=== PATIENT | male | born 1940 | race Caucasian/White ===

== ENCOUNTER 2021-03-25 08:05 | Outpatient (CLI) | payer MEDICARE, OTHER | END 2021-03-25 08:06 | disposition home or self-care (01) | LOC: CSHWCC 08:05 | PROVIDERS: ATTEND Nurse Practitioner Family | DX: L89.301 Pressure ulcer of unspecified buttock, stage 1 (principal) ==

== ENCOUNTER 2021-08-01 11:11 | Inpatient (IN) | payer MEDICARE, OTHER ==
[2021-08-01 11:54] LABS: Bilirubin Neg (Negative); Blood, Urine Negative (Negative); Clarity Slightly Cloudy (Clear); Glucose, Urine (Dipstick) Normal (Negative); Ketone, Urine Negative (Negative); Leukocyte 500 (Negative); Nitrite Negative (Negative); Protein, Urine (Dipstick) Negative (Neg-Trace); Specific Gravity, Urine 1.005 (1.002-1.036); Urobilinogen Normal mg/dL (Less than 2)
[2021-08-01] MEDS ORDERED: Furosemide 40 MG/4 ML VIAL ONE (12:02)
[2021-08-01] MEDS ORDERED: Nitroglycerin 2% Ointment 1 INCH/1 GM Packet ONE (12:02)
[2021-08-01 12:07] LABS: #Monocytes 0.7 10x3/uL (0.0-1.1); %Basophils 0.5 % (0.0-2.0); %Eosinophils 0.5 % (0.0-6.0); %Lymphocytes 14.3 % (18.0-47.0); %Monocytes 8.8 % (0.0-10.0); %Neutrophils 75.5 % (40.0-75.0); Hemoglobin 7.3 g/dL (13.5-17.5); Mean Corpuscular HGB CONC 31.1 g/dL (32.0-36.0); Mean Corpuscular Hemoglobin 30.9 pg (27.0-33.0); Mean Corpuscular Volume 99.6 fl (81.2-95.1); Mean Platelet Volume 10.6 fl (7.4-10.4); Platelet Count 278 10x3/uL (150-450); RBC Distribution Width 14.4 % (11.5-14.5); Red Blood Cell (RBC) Count 2.36 10x6/uL (4.32-5.72); White Blood Cell (WBC) Count 7.9 10x3/uL (3.5-10.5)
[2021-08-01 12:20] LABS: ALT (SGPT) 10 U/L (8-55); AST (SGOT) 13 U/L (5-34); Albumin 3.5 g/dL (3.4-4.8); Alkaline Phosphatase 55 U/L (40-110); Anion Gap 16 mmol/L (10-20); BUN (Urea Nitrogen) 41 mg/dL (8.4-25.7); Bilirubin, Total 0.4 mg/dL (0.2-1.2); CK (CPK) 106 U/L (30-200); Calc. Creatinine Clearance 0 mL/min (70-130); Calcium 9.2 mg/dL (7.8-10.44); Carbon Dioxide 33 mmol/L (23-31); Chloride 99 mmol/L (98-107); Globulin 2.7 g/dL (2.4-3.5); Glucose 115 mg/dL (83-110); Lipase 23 U/L (8-78); Potassium 3.9 mmol/L (3.5-5.1); Protein, Total 6.2 g/dL (5.8-8.1); Sodium 144 mmol/L (136-145)
[2021-08-01 12:31] LABS: RBC/HPF None Seen HPF (0-3)
[2021-08-01 12:33] LABS: Bacteria/HPF 2+ HPF (None Seen)
[2021-08-01] MEDS ORDERED: Acetaminophen 325 MG TAB PO PRN (14:44)
[2021-08-01] MEDS ORDERED: Dextrose 5% in Water 1,000 ML IV PRN (14:53)
[2021-08-01] MEDS ORDERED: Dextrose 50% Abboject 50 ML SYRINGE SLOW IVP PRN (14:53)
[2021-08-01] MEDS ORDERED: HumaLOG 300 UNITS/3 ML VIAL SC PRN (14:53)
[2021-08-01 15:56] VITALS: BMI 43.8
[2021-08-01] MEDS ORDERED: Furosemide 40 MG/4 ML VIAL SLOW IVP SCH (17:00)
[2021-08-01] MEDS ORDERED: Apixaban 5 MG TAB PO SCH (21:00)
[2021-08-02 04:08] LABS: #Eosinphils 0.1 10x3/uL (0.0-0.5); #Monocytes 0.7 10x3/uL (0.0-1.1); #Neutrophils 5.3 10x3/uL (1.5-8.4); %Basophils 0.6 % (0.0-2.0); %Lymphocytes 15.2 % (18.0-47.0); %Neutrophils 73.8 % (40.0-75.0); Hemoglobin 7.6 g/dL (13.5-17.5); Mean Corpuscular HGB CONC 32.6 g/dL (32.0-36.0); Mean Corpuscular Hemoglobin 32.1 pg (27.0-33.0); Mean Corpuscular Volume 98.3 fl (81.2-95.1); Mean Platelet Volume 10.7 fl (7.4-10.4); Platelet Count 277 10x3/uL (150-450); RBC Distribution Width 14.6 % (11.5-14.5); Red Blood Cell (RBC) Count 2.37 10x6/uL (4.32-5.72); White Blood Cell (WBC) Count 7.2 10x3/uL (3.5-10.5)
[2021-08-02 04:16] LABS: Anion Gap 14 mmol/L (10-20); BUN (Urea Nitrogen) 42 mg/dL (8.4-25.7); Calc. Creatinine Clearance 46 mL/min (70-130); Carbon Dioxide 36 mmol/L (23-31); Chloride 98 mmol/L (98-107); Glucose 140 mg/dL (83-110); Sodium 144 mmol/L (136-145)
[2021-08-02] MEDS: Furosemide 100 MG/10 ML VIAL SLOW IVP SCH (12:36)
[2021-08-02] MEDS: Atenolol 25 MG TAB PO SCH (12:38)
[2021-08-02] MEDS: Apixaban 2.5 MG TAB PO SCH ×2 (12:38→21:18)
[2021-08-02] MEDS: Spironolactone 25 MG TAB PO SCH (12:38)
[2021-08-02] MEDS: Allopurinol 100 MG TAB PO SCH (12:38)
[2021-08-02] MEDS: Donepezil HCl 5 MG TAB PO SCH (12:38)
[2021-08-03 03:55] LABS: Anion Gap 14 mmol/L (10-20); BUN (Urea Nitrogen) 40 mg/dL (8.4-25.7); Calc. Creatinine Clearance 49 mL/min (70-130); Calcium 9.2 mg/dL (7.8-10.44); Carbon Dioxide 35 mmol/L (23-31); Chloride 97 mmol/L (98-107); Glucose 137 mg/dL (83-110); Potassium 4.2 mmol/L (3.5-5.1); Sodium 142 mmol/L (136-145)
[2021-08-03 04:06] LABS: #Eosinphils 0.1 10x3/uL (0.0-0.5); #Monocytes 0.7 10x3/uL (0.0-1.1); #Neutrophils 6.6 10x3/uL (1.5-8.4); %Basophils 0.5 % (0.0-2.0); %Eosinophils 0.9 % (0.0-6.0); %Lymphocytes 14.7 % (18.0-47.0); %Neutrophils 75.6 % (40.0-75.0); Hemoglobin 8.8 g/dL (13.5-17.5); Mean Corpuscular HGB CONC 32.8 g/dL (32.0-36.0); Mean Corpuscular Hemoglobin 31.7 pg (27.0-33.0); Mean Corpuscular Volume 96.4 fl (81.2-95.1); Mean Platelet Volume 10.6 fl (7.4-10.4); Platelet Count 286 10x3/uL (150-450); RBC Distribution Width 14.9 % (11.5-14.5); Red Blood Cell (RBC) Count 2.78 10x6/uL (4.32-5.72); White Blood Cell (WBC) Count 8.7 10x3/uL (3.5-10.5)
[2021-08-03] MEDS: Donepezil HCl 5 MG TAB PO SCH (09:25)
[2021-08-03] MEDS: Allopurinol 100 MG TAB PO SCH (09:25)
[2021-08-03] MEDS: Spironolactone 25 MG TAB PO SCH (09:25)
[2021-08-03] MEDS: Atenolol 25 MG TAB PO SCH (09:25)
[2021-08-03] MEDS: Apixaban 2.5 MG TAB PO SCH ×2 (09:25→20:54)
[2021-08-03] MEDS: Furosemide 100 MG/10 ML VIAL SLOW IVP SCH (11:07)
[2021-08-03] MEDS: SODIUM CHLORIDE IVPB SCH ×4 (11:07→22:46)
[2021-08-03] MEDS: ADMIXTURE FEE IVPB SCH ×4 (11:07→22:46)
[2021-08-03] MEDS: PENICILLIN POTASSIUM IVPB SCH ×4 (11:07→22:46)
[2021-08-04] MEDS: SODIUM CHLORIDE IVPB SCH ×4 (02:41→14:04)
[2021-08-04] MEDS: ADMIXTURE FEE IVPB SCH ×4 (02:41→14:04)
[2021-08-04] MEDS: PENICILLIN POTASSIUM IVPB SCH ×4 (02:41→14:04)
[2021-08-04 03:39] LABS: #Eosinphils 0.1 10x3/uL (0.0-0.5); #Monocytes 0.9 10x3/uL (0.0-1.1); #Neutrophils 6.4 10x3/uL (1.5-8.4); %Basophils 0.5 % (0.0-2.0); %Eosinophils 1.3 % (0.0-6.0); %Neutrophils 72.9 % (40.0-75.0); Hemoglobin 8.6 g/dL (13.5-17.5); Mean Corpuscular HGB CONC 31.7 g/dL (32.0-36.0); Mean Corpuscular Hemoglobin 30.9 pg (27.0-33.0); Mean Corpuscular Volume 97.5 fl (81.2-95.1); Mean Platelet Volume 10.8 fl (7.4-10.4); Platelet Count 263 10x3/uL (150-450); RBC Distribution Width 14.6 % (11.5-14.5); Red Blood Cell (RBC) Count 2.78 10x6/uL (4.32-5.72); White Blood Cell (WBC) Count 8.7 10x3/uL (3.5-10.5)
[2021-08-04 03:56] LABS: Anion Gap 16 mmol/L (10-20); BUN (Urea Nitrogen) 40 mg/dL (8.4-25.7); Calc. Creatinine Clearance 46 mL/min (70-130); Calcium 9.1 mg/dL (7.8-10.44); Carbon Dioxide 34 mmol/L (23-31); Chloride 99 mmol/L (98-107); Glucose 138 mg/dL (83-110); Potassium 4.6 mmol/L (3.5-5.1); Sodium 144 mmol/L (136-145)
[2021-08-04] MEDS ORDERED: Furosemide 40 MG TAB PO SCH (07:30)
[2021-08-04 07:54] VITALS: TEMP 98.1
[2021-08-04] MEDS: Donepezil HCl 5 MG TAB PO SCH (10:03)
[2021-08-04] MEDS: Atenolol 25 MG TAB PO SCH (10:03)
[2021-08-04] MEDS: Spironolactone 25 MG TAB PO SCH (10:04)
[2021-08-04] MEDS: Apixaban 2.5 MG TAB PO SCH (10:04)
[2021-08-04] MEDS: Allopurinol 100 MG TAB PO SCH (10:04)
[2021-08-04 13:07] VITALS: BP 125/63
[2021-08-04] MEDS ORDERED: Tamsulosin HCl 0.4 MG CAP PO SCH (21:00)
== END 2021-08-04 15:48 | disposition home or self-care (01) | DRG 607 ==
LOC: CSHERS 11:11 → CSHTELE 13:32
PROVIDERS: ADMIT Family Medicine; ATTEND Hospitalist
PROC: 30233N1 Transfusion of Nonautologous Red Blood Cells into Peripheral Vein, Percutaneous Approach (ICD-10-PCS; principal; 2021-08-02)
DX: I89.0 Lymphedema, not elsewhere classified (principal); I13.0 Hypertensive heart and chronic kidney disease with heart failure and stage 1 through stage 4 chronic kidney disease, or unspecified chronic kidney disease; Z68.41 Body mass index [BMI] 40.0-44.9, adult; N18.4 Chronic kidney disease, stage 4 (severe); N39.0 Urinary tract infection, site not specified; J96.11 Chronic respiratory failure with hypoxia; I50.32 Chronic diastolic (congestive) heart failure; M10.9 Gout, unspecified; E78.5 Hyperlipidemia, unspecified; E11.22 Type 2 diabetes mellitus with diabetic chronic kidney disease; D63.1 Anemia in chronic kidney disease; I25.10 Atherosclerotic heart disease of native coronary artery without angina pectoris; N40.0 Benign prostatic hyperplasia without lower urinary tract symptoms; I48.0 Paroxysmal atrial fibrillation; E66.9 Obesity, unspecified; E11.65 Type 2 diabetes mellitus with hyperglycemia; G47.33 Obstructive sleep apnea (adult) (pediatric); Z20.822 Contact with and (suspected) exposure to COVID-19; J64 Unspecified pneumoconiosis; Z79.51 Long term (current) use of inhaled steroids; Z88.8 Allergy status to other drugs, medicaments and biological substances; Z79.899 Other long term (current) drug therapy; Z79.84 Long term (current) use of oral hypoglycemic drugs
CPT/HCPCS: 36415; 36416; 36430; 71045; 71250; 80048; 80053; 81003; 81015; 82550; 83690; 83880; 84484; 85025; 86850; 86900; 86901; 87040; 87077; 87086; 93005; 93306; 94660; 94760; 96374; J1940; J2540; P9016; U0003; U0005

== ENCOUNTER 2021-11-03 03:25 | Inpatient (IN) | payer MEDICARE, OTHER ==
[2021-11-03] MEDS ORDERED: Furosemide 40 MG/4 ML VIAL ONE (03:58)
[2021-11-03 04:36] LABS: #Eosinphils 0.1 10x3/uL (0.0-0.5); #Monocytes 0.6 10x3/uL (0.0-1.1); #Neutrophils 6.2 10x3/uL (1.5-8.4); %Basophils 0.3 % (0.0-2.0); %Eosinophils 0.7 % (0.0-6.0); %Lymphocytes 9.5 % (18.0-47.0); %Monocytes 8.3 % (0.0-10.0); %Neutrophils 80.8 % (40.0-75.0); Hemoglobin 7.3 g/dL (13.5-17.5); Mean Corpuscular HGB CONC 30.8 g/dL (32.0-36.0); Mean Corpuscular Hemoglobin 29.6 pg (27.0-33.0); Mean Platelet Volume 10.2 fl (7.4-10.4); Platelet Count 272 10x3/uL (150-450); RBC Distribution Width 15.7 % (11.5-14.5); Red Blood Cell (RBC) Count 2.47 10x6/uL (4.32-5.72); White Blood Cell (WBC) Count 7.6 10x3/uL (3.5-10.5)
[2021-11-03 04:40] LABS: ALT (SGPT) 16 U/L (8-55); AST (SGOT) 16 U/L (5-34); Albumin 3.8 g/dL (3.4-4.8); Alkaline Phosphatase 66 U/L (40-110); Anion Gap 12 mmol/L (10-20); BUN (Urea Nitrogen) 25 mg/dL (8.4-25.7); Bilirubin, Total 0.5 mg/dL (0.2-1.2); Calc. Creatinine Clearance 0 mL/min (70-130); Calcium 9.5 mg/dL (7.8-10.44); Carbon Dioxide 32 mmol/L (23-31); Chloride 99 mmol/L (98-107); Estimated GFR 34; Globulin 2.9 g/dL (2.4-3.5); Glucose 133 mg/dL (83-110); Lipase 20 U/L (8-78); Magnesium 1.7 mg/dL (1.6-2.6); Potassium 3.9 mmol/L (3.5-5.1); Protein, Total 6.7 g/dL (5.8-8.1); Sodium 139 mmol/L (136-145)
[2021-11-03 04:54] LABS: Bilirubin Neg (Negative); Blood, Urine Negative (Negative); Clarity Clear (Clear); Glucose, Urine (Dipstick) Normal (Negative); Ketone, Urine Negative (Negative); Leukocyte 500 (Negative); Nitrite Positive (Negative); Protein, Urine (Dipstick) Negative (Neg-Trace); Urobilinogen Normal mg/dL (Less than 2)
[2021-11-03 05:01] LABS: CKMB 4.2 ng/mL (0-6.6)
[2021-11-03 05:04] LABS: Bacteria/HPF 3+ HPF (None Seen); RBC/HPF None Seen HPF (0-3); Squamous Epithelial 0-3 HPF (0-3)
[2021-11-03 05:40] LABS: SARS-CoV-2 NAA Rapid Test Not Detected (NotDetected)
[2021-11-03] MEDS ORDERED: cefTRIAXone\\ROCEPHIN 1 GM VIAL ONE (06:02)
[2021-11-03] MEDS ORDERED: Furosemide 100 MG/10 ML VIAL SLOW IVP SCH (06:15)
[2021-11-03] MEDS ORDERED: Dextrose 50% Abboject 50 ML SYRINGE SLOW IVP PRN (06:16)
[2021-11-03] MEDS ORDERED: Dextrose 5% in Water 1,000 ML IV PRN (06:16)
[2021-11-03] MEDS ORDERED: methylPREDNISolone Sod Succ 40 MG VIAL IVP SCH (06:30)
[2021-11-03 06:32] LABS: PTT 29.3 sec (22.0-33.0); Prothrombin Time 11.2 sec (9.5-12.1)
[2021-11-03 06:38] LABS: Magnesium 1.8 mg/dL (1.6-2.6)
[2021-11-03 07:59] VITALS: BMI 41.8
[2021-11-03] MEDS: Enoxaparin Sodium 120 MG/0.8 ML SYRINGE SC SCH ×2 (11:15→21:11)
[2021-11-03] MEDS: Aspirin Chewable 81 MG TAB PO SCH (11:15)
[2021-11-03] MEDS: Pantoprazole 40 MG VIAL IVP SCH (11:18)
[2021-11-03] MEDS: Furosemide 100 MG/10 ML VIAL SLOW IVP SCH (14:17)
[2021-11-03] MEDS: methylPREDNISolone Sod Succ 40 MG VIAL IVP SCH (21:11)
[2021-11-04] MEDS: cefTRIAXone\\ROCEPHIN 1 GM in Sodium Chloride 0.9% 100 ML IVPB SCH (04:24)
[2021-11-04 05:30] LABS: #Monocytes 0.1 10x3/uL (0.0-1.1); #Neutrophils 6.8 10x3/uL (1.5-8.4); %Monocytes 1.6 % (0.0-10.0); %Neutrophils 91.7 % (40.0-75.0); Hemoglobin 6.8 g/dL (13.5-17.5); Mean Corpuscular HGB CONC 31.8 g/dL (32.0-36.0); Mean Corpuscular Hemoglobin 29.7 pg (27.0-33.0); Mean Corpuscular Volume 93.4 fl (81.2-95.1); Mean Platelet Volume 10.5 fl (7.4-10.4); Platelet Count 256 10x3/uL (150-450); RBC Distribution Width 15.7 % (11.5-14.5); Red Blood Cell (RBC) Count 2.29 10x6/uL (4.32-5.72); White Blood Cell (WBC) Count 7.5 10x3/uL (3.5-10.5)
[2021-11-04 05:33] LABS: Anion Gap 14 mmol/L (10-20); BUN (Urea Nitrogen) 30 mg/dL (8.4-25.7); Calc. Creatinine Clearance 47 mL/min (70-130); Carbon Dioxide 31 mmol/L (23-31); Chloride 100 mmol/L (98-107); Estimated GFR 31; Glucose 161 mg/dL (83-110); Potassium 4.4 mmol/L (3.5-5.1); Sodium 141 mmol/L (136-145)
[2021-11-04] MEDS: Furosemide 100 MG/10 ML VIAL SLOW IVP SCH ×2 (06:09→14:08)
[2021-11-04 06:43] LABS: RapidComm Comment CP.BR1
[2021-11-04] MEDS: Aspirin Chewable 81 MG TAB PO SCH (08:33)
[2021-11-04] MEDS: Enoxaparin Sodium 120 MG/0.8 ML SYRINGE SC SCH (08:33)
[2021-11-04] MEDS: methylPREDNISolone Sod Succ 40 MG VIAL IVP SCH ×2 (08:33→20:06)
[2021-11-04] MEDS: Pantoprazole 40 MG VIAL IVP SCH (08:33)
[2021-11-04] MEDS ORDERED: Benzonatate 100 MG CAP PO SCH (11:00)
[2021-11-04] MEDS: Metoprolol Tartrate 5 MG/5 ML VIAL IVP PRN ×5 (12:28→20:06)
[2021-11-04 14:01] LABS: Puncture Site RRA
[2021-11-04 14:07] LABS: ALV-art Gradient 85.775 mmHg (0-20); Actual Bicarbonate (HCO3a) 32.2 mEq/L (22-28); Base Excess (BEa) 7.6 mEq/L (-2.0 to +3.0); CO2 Tension 46.3 mmHg (35.0-45.0); Calcium, Ionized (arterial) 1.13 mmol/L (1.12-1.30); Carboxyhemoglobin (COHb) 0.7 gm% (0.0-3.0); Hemoglobin (Hb) 7.4 g/dL (14.0-18.0); O2 Tension (PaO2), arterial 105.9 mmHg (> 60.0); Potassium - ABG Lab 4.1 mmol/L (3.70-5.30); pH, Arterial 7.46 (7.35-7.45)
[2021-11-04] MEDS: HumaLOG 300 UNITS/3 ML VIAL SC PRN ×2 (16:09→22:18)
[2021-11-04] MEDS: Apixaban 2.5 MG TAB PO SCH (20:06)
[2021-11-04] MEDS: Benzonatate 100 MG CAP PO SCH (20:06)
[2021-11-05] MEDS: Metoprolol Tartrate 5 MG/5 ML VIAL IVP PRN ×2 (00:09→08:12)
[2021-11-05 04:04] LABS: Hemoglobin 8.4 g/dL (13.5-17.5); Mean Corpuscular HGB CONC 31.8 g/dL (32.0-36.0); Mean Corpuscular Hemoglobin 30.1 pg (27.0-33.0); Mean Corpuscular Volume 94.6 fl (81.2-95.1); Mean Platelet Volume 10.4 fl (7.4-10.4); Platelet Count 285 10x3/uL (150-450); RBC Distribution Width 15.4 % (11.5-14.5); Red Blood Cell (RBC) Count 2.79 10x6/uL (4.32-5.72)
[2021-11-05 04:28] LABS: Anion Gap 15 mmol/L (10-20); BUN (Urea Nitrogen) 52 mg/dL (8.4-25.7); Calc. Creatinine Clearance 36 mL/min (70-130); Calcium 8.9 mg/dL (7.8-10.44); Carbon Dioxide 33 mmol/L (23-31); Chloride 95 mmol/L (98-107); Estimated GFR 22; Glucose 180 mg/dL (83-110); Potassium 4.5 mmol/L (3.5-5.1); Sodium 138 mmol/L (136-145)
[2021-11-05 04:44] LABS: MDiff Complete? YES
[2021-11-05 04:46] LABS: Band 1 % (5-11); Lymphocytes 6 % (21-51); Monocytes 4 % (0-10); Myelocyte 1 % (0-0); Neutrophil 87 % (42-75); Reactive Lymphocytes 1 % (0-10)
[2021-11-05 04:47] LABS: Platelet Morphology Comment Appears Adequate; Toxic Granulation SLIGHT
[2021-11-05 04:48] LABS: RBC Morphology Normal
[2021-11-05] MEDS: cefTRIAXone\\ROCEPHIN 1 GM in Sodium Chloride 0.9% 100 ML IVPB SCH (05:20)
[2021-11-05] MEDS: Aspirin Chewable 81 MG TAB PO SCH (08:01)
[2021-11-05] MEDS: methylPREDNISolone Sod Succ 40 MG VIAL IVP SCH (08:01)
[2021-11-05] MEDS: Furosemide 40 MG TAB PO SCH ×2 (08:01→14:06)
[2021-11-05] MEDS: Benzonatate 100 MG CAP PO SCH ×3 (08:01→20:12)
[2021-11-05] MEDS: Atenolol 25 MG TAB PO SCH (08:01)
[2021-11-05] MEDS: Apixaban 2.5 MG TAB PO SCH ×2 (08:01→20:12)
[2021-11-05] MEDS: HumaLOG 300 UNITS/3 ML VIAL SC PRN ×3 (08:12→21:18)
[2021-11-05] MEDS: Donepezil HCl 5 MG TAB PO SCH (08:44)
[2021-11-06 04:49] LABS: Anion Gap 15 mmol/L (10-20); BUN (Urea Nitrogen) 60 mg/dL (8.4-25.7); Calc. Creatinine Clearance 40 mL/min (70-130); Carbon Dioxide 33 mmol/L (23-31); Chloride 94 mmol/L (98-107); Estimated GFR 25; Glucose 116 mg/dL (83-110); Potassium 3.8 mmol/L (3.5-5.1); Sodium 138 mmol/L (136-145)
[2021-11-06] MEDS: cefTRIAXone\\ROCEPHIN 1 GM in Sodium Chloride 0.9% 100 ML IVPB SCH (05:12)
[2021-11-06] MEDS: Apixaban 2.5 MG TAB PO SCH ×2 (08:03→21:00)
[2021-11-06] MEDS: Furosemide 40 MG TAB PO SCH ×2 (08:03→13:26)
[2021-11-06] MEDS: Donepezil HCl 5 MG TAB PO SCH (08:03)
[2021-11-06] MEDS: Benzonatate 100 MG CAP PO SCH ×3 (08:03→20:59)
[2021-11-06] MEDS: predniSONE 20 MG TAB PO SCH (08:03)
[2021-11-06] MEDS: Aspirin Chewable 81 MG TAB PO SCH (08:04)
[2021-11-06] MEDS: Atenolol 25 MG TAB PO SCH (08:04)
[2021-11-06] MEDS: HumaLOG 300 UNITS/3 ML VIAL SC PRN ×2 (11:48→17:02)
[2021-11-06 14:54] LABS: Actual Bicarbonate (HCO3a) 31.3 mEq/L (22-28); Base Excess (BEa) 4.9 mEq/L (-2.0 to +3.0); CO2 Tension 58.4 mmHg (35.0-45.0); Calcium, Ionized (arterial) 1.18 mmol/L (1.12-1.30); Carboxyhemoglobin (COHb) 0.9 gm% (0.0-3.0); Hemoglobin (Hb) 7.6 g/dL (14.0-18.0); O2 Tension (PaO2), arterial 127.6 mmHg (> 60.0); Potassium - ABG Lab 3.9 mmol/L (3.70-5.30); Puncture Site RRA; pH, Arterial 7.35 (7.35-7.45)
[2021-11-07 05:08] LABS: Anion Gap 14 mmol/L (10-20); BUN (Urea Nitrogen) 64 mg/dL (8.4-25.7); Calc. Creatinine Clearance 39 mL/min (70-130); Calcium 8.5 mg/dL (7.8-10.44); Carbon Dioxide 34 mmol/L (23-31); Chloride 94 mmol/L (98-107); Estimated GFR 26; Glucose 130 mg/dL (83-110); Potassium 3.8 mmol/L (3.5-5.1); Sodium 138 mmol/L (136-145)
[2021-11-07] MEDS: cefTRIAXone\\ROCEPHIN 1 GM in Sodium Chloride 0.9% 100 ML IVPB SCH (05:10)
[2021-11-07 05:24] LABS: #Monocytes 1.1 10x3/uL (0.0-1.1); #Neutrophils 8.5 10x3/uL (1.5-8.4); %Eosinophils 0.3 % (0.0-6.0); %Lymphocytes 13.4 % (18.0-47.0); %Neutrophils 75.9 % (40.0-75.0); Hemoglobin 9.1 g/dL (13.5-17.5); Mean Corpuscular HGB CONC 31.4 g/dL (32.0-36.0); Mean Corpuscular Hemoglobin 29.4 pg (27.0-33.0); Mean Corpuscular Volume 93.9 fl (81.2-95.1); Platelet Count 279 10x3/uL (150-450); RBC Distribution Width 15.2 % (11.5-14.5); Red Blood Cell (RBC) Count 3.09 10x6/uL (4.32-5.72); White Blood Cell (WBC) Count 11.2 10x3/uL (3.5-10.5)
[2021-11-07] MEDS: Donepezil HCl 5 MG TAB PO SCH (09:09)
[2021-11-07] MEDS: Aspirin Chewable 81 MG TAB PO SCH (09:09)
[2021-11-07] MEDS: Atenolol 25 MG TAB PO SCH (09:10)
[2021-11-07] MEDS: predniSONE 20 MG TAB PO SCH (09:10)
[2021-11-07] MEDS: Benzonatate 100 MG CAP PO SCH ×3 (09:10→20:30)
[2021-11-07] MEDS: Furosemide 40 MG TAB PO SCH ×2 (09:10→16:25)
[2021-11-07] MEDS: Apixaban 2.5 MG TAB PO SCH ×2 (09:10→20:30)
[2021-11-07] MEDS: HumaLOG 300 UNITS/3 ML VIAL SC PRN ×2 (18:23→20:47)
[2021-11-08 05:39] LABS: Anion Gap 17 mmol/L (10-20); BUN (Urea Nitrogen) 68 mg/dL (8.4-25.7); Calc. Creatinine Clearance 36 mL/min (70-130); Calcium 8.4 mg/dL (7.8-10.44); Carbon Dioxide 33 mmol/L (23-31); Chloride 94 mmol/L (98-107); Estimated GFR 24; Glucose 153 mg/dL (83-110); Potassium 4.1 mmol/L (3.5-5.1); Sodium 140 mmol/L (136-145)
[2021-11-08] MEDS: HumaLOG 300 UNITS/3 ML VIAL SC PRN ×2 (06:41→20:51)
[2021-11-08] MEDS: Atenolol 25 MG TAB PO SCH (10:36)
[2021-11-08] MEDS: Benzonatate 100 MG CAP PO SCH ×3 (10:37→20:04)
[2021-11-08] MEDS: Furosemide 40 MG TAB PO SCH ×2 (10:37→14:58)
[2021-11-08] MEDS: Aspirin Chewable 81 MG TAB PO SCH (10:38)
[2021-11-08] MEDS: Donepezil HCl 5 MG TAB PO SCH (10:38)
[2021-11-08] MEDS: Apixaban 2.5 MG TAB PO SCH ×2 (10:38→20:04)
[2021-11-08] MEDS: predniSONE 20 MG TAB PO SCH (10:38)
[2021-11-09 04:56] LABS: Anion Gap 15 mmol/L (10-20); BUN (Urea Nitrogen) 74 mg/dL (8.4-25.7); Calc. Creatinine Clearance 37 mL/min (70-130); Calcium 8.5 mg/dL (7.8-10.44); Carbon Dioxide 31 mmol/L (23-31); Chloride 94 mmol/L (98-107); Estimated GFR 24; Glucose 155 mg/dL (83-110); Potassium 4.7 mmol/L (3.5-5.1); Sodium 135 mmol/L (136-145)
[2021-11-09] MEDS: predniSONE 20 MG TAB PO SCH (08:36)
[2021-11-09] MEDS: Furosemide 40 MG TAB PO SCH ×2 (08:36→15:35)
[2021-11-09] MEDS: Aspirin Chewable 81 MG TAB PO SCH (08:36)
[2021-11-09] MEDS: Benzonatate 100 MG CAP PO SCH ×3 (08:36→20:50)
[2021-11-09] MEDS: Atenolol 25 MG TAB PO SCH (08:37)
[2021-11-09] MEDS: Apixaban 2.5 MG TAB PO SCH ×2 (08:37→20:49)
[2021-11-09] MEDS: Donepezil HCl 5 MG TAB PO SCH (08:37)
[2021-11-09] MEDS: HumaLOG 300 UNITS/3 ML VIAL SC PRN (13:14)
[2021-11-10 05:20] LABS: Anion Gap 13 mmol/L (10-20); BUN (Urea Nitrogen) 72 mg/dL (8.4-25.7); Calc. Creatinine Clearance 37 mL/min (70-130); Calcium 8.4 mg/dL (7.8-10.44); Carbon Dioxide 33 mmol/L (23-31); Chloride 95 mmol/L (98-107); Estimated GFR 24; Glucose 131 mg/dL (83-110); Potassium 4.1 mmol/L (3.5-5.1); Sodium 137 mmol/L (136-145)
[2021-11-10] MEDS: Aspirin Chewable 81 MG TAB PO SCH (08:32)
[2021-11-10] MEDS: predniSONE 20 MG TAB PO SCH (08:32)
[2021-11-10] MEDS: Apixaban 2.5 MG TAB PO SCH ×2 (08:32→20:29)
[2021-11-10] MEDS: Furosemide 40 MG TAB PO SCH (08:32)
[2021-11-10] MEDS: Benzonatate 100 MG CAP PO SCH ×3 (08:32→20:29)
[2021-11-10] MEDS: Donepezil HCl 5 MG TAB PO SCH (08:32)
[2021-11-10] MEDS: Atenolol 25 MG TAB PO SCH (08:40)
[2021-11-10] MEDS: HumaLOG 300 UNITS/3 ML VIAL SC PRN ×3 (12:36→20:42)
[2021-11-10] MEDS ORDERED: Meclizine HCl 12.5 MG TAB PO PRN (13:20)
[2021-11-11 05:37] LABS: #Monocytes 0.8 10x3/uL (0.0-1.1); #Neutrophils 9.6 10x3/uL (1.5-8.4); %Basophils 0.1 % (0.0-2.0); %Eosinophils 0.3 % (0.0-6.0); %Lymphocytes 9.6 % (18.0-47.0); %Monocytes 6.5 % (0.0-10.0); Hemoglobin 8.7 g/dL (13.5-17.5); Mean Corpuscular HGB CONC 32.1 g/dL (32.0-36.0); Mean Corpuscular Hemoglobin 29.9 pg (27.0-33.0); Mean Corpuscular Volume 93.1 fl (81.2-95.1); Mean Platelet Volume 11.1 fl (7.4-10.4); Platelet Count 263 10x3/uL (150-450); RBC Distribution Width 14.9 % (11.5-14.5); Red Blood Cell (RBC) Count 2.91 10x6/uL (4.32-5.72); White Blood Cell (WBC) Count 11.6 10x3/uL (3.5-10.5)
[2021-11-11 05:55] LABS: Anion Gap 14 mmol/L (10-20); BUN (Urea Nitrogen) 73 mg/dL (8.4-25.7); Calc. Creatinine Clearance 41 mL/min (70-130); Calcium 8.7 mg/dL (7.8-10.44); Carbon Dioxide 30 mmol/L (23-31); Chloride 96 mmol/L (98-107); Estimated GFR 27; Glucose 137 mg/dL (83-110); Potassium 4.4 mmol/L (3.5-5.1); Sodium 136 mmol/L (136-145)
[2021-11-11] MEDS: predniSONE 20 MG TAB PO SCH (09:26)
[2021-11-11] MEDS: Aspirin Chewable 81 MG TAB PO SCH (09:26)
[2021-11-11] MEDS: Apixaban 2.5 MG TAB PO SCH ×2 (09:27→21:49)
[2021-11-11] MEDS: Furosemide 40 MG TAB PO SCH (09:27)
[2021-11-11] MEDS: Donepezil HCl 5 MG TAB PO SCH (09:27)
[2021-11-11] MEDS: Atenolol 25 MG TAB PO SCH (09:27)
[2021-11-11] MEDS: Benzonatate 100 MG CAP PO SCH ×3 (09:27→21:49)
[2021-11-12 04:20] LABS: #Monocytes 0.8 10x3/uL (0.0-1.1); #Neutrophils 9.2 10x3/uL (1.5-8.4); %Eosinophils 0.2 % (0.0-6.0); %Lymphocytes 9.3 % (18.0-47.0); %Monocytes 6.9 % (0.0-10.0); %Neutrophils 82.8 % (40.0-75.0); Hemoglobin 8.2 g/dL (13.5-17.5); Mean Corpuscular HGB CONC 31.5 g/dL (32.0-36.0); Mean Corpuscular Hemoglobin 29.6 pg (27.0-33.0); Mean Corpuscular Volume 93.9 fl (81.2-95.1); Mean Platelet Volume 11.1 fl (7.4-10.4); Platelet Count 268 10x3/uL (150-450); RBC Distribution Width 14.7 % (11.5-14.5); Red Blood Cell (RBC) Count 2.77 10x6/uL (4.32-5.72); White Blood Cell (WBC) Count 11.1 10x3/uL (3.5-10.5)
[2021-11-12 04:49] LABS: Anion Gap 15 mmol/L (10-20); BUN (Urea Nitrogen) 85 mg/dL (8.4-25.7); Calc. Creatinine Clearance 34 mL/min (70-130); Calcium 8.3 mg/dL (7.8-10.44); Carbon Dioxide 28 mmol/L (23-31); Chloride 99 mmol/L (98-107); Estimated GFR 22; Glucose 173 mg/dL (83-110); Potassium 4.8 mmol/L (3.5-5.1); Sodium 137 mmol/L (136-145)
[2021-11-12] MEDS: HumaLOG 300 UNITS/3 ML VIAL SC PRN ×2 (05:44→13:05)
[2021-11-12] MEDS ORDERED: guaiFENesin ER 600 MG TAB PO SCH (09:28)
[2021-11-12] MEDS: Furosemide 40 MG TAB PO SCH (09:49)
[2021-11-12] MEDS: Atenolol 25 MG TAB PO SCH (09:49)
[2021-11-12] MEDS: Aspirin Chewable 81 MG TAB PO SCH (09:49)
[2021-11-12] MEDS: Benzonatate 100 MG CAP PO SCH (09:49)
[2021-11-12] MEDS: predniSONE 20 MG TAB PO SCH (09:50)
[2021-11-12] MEDS: Donepezil HCl 5 MG TAB PO SCH (09:50)
[2021-11-12] MEDS: Apixaban 2.5 MG TAB PO SCH (09:50)
[2021-11-12 12:27] VITALS: BP 95/52; TEMP 97.8
== END 2021-11-12 13:46 | DRG 291 ==
LOC: CSHERS 03:25 → CSHIMCU 07:35 → CSHTELE 11-06 17:14
PROVIDERS: ADMIT Family Medicine; ATTEND Family Medicine
PROC: 5A09557 Assistance with Respiratory Ventilation, Greater than 96 Consecutive Hours, Continuous Positive Airway Pressure (ICD-10-PCS; principal; 2021-11-03)
PROC: 30233N1 Transfusion of Nonautologous Red Blood Cells into Peripheral Vein, Percutaneous Approach (ICD-10-PCS; 2021-11-04)
DX: I13.0 Hypertensive heart and chronic kidney disease with heart failure and stage 1 through stage 4 chronic kidney disease, or unspecified chronic kidney disease (principal); I50.33 Acute on chronic diastolic (congestive) heart failure; J96.21 Acute and chronic respiratory failure with hypoxia; N39.0 Urinary tract infection, site not specified; G93.49 Other encephalopathy; E87.2 Acidosis; Z68.41 Body mass index [BMI] 40.0-44.9, adult; N18.4 Chronic kidney disease, stage 4 (severe); J44.1 Chronic obstructive pulmonary disease with (acute) exacerbation; I82.442 Acute embolism and thrombosis of left tibial vein; Z20.822 Contact with and (suspected) exposure to COVID-19; G47.33 Obstructive sleep apnea (adult) (pediatric); I48.0 Paroxysmal atrial fibrillation; E11.22 Type 2 diabetes mellitus with diabetic chronic kidney disease; I25.10 Atherosclerotic heart disease of native coronary artery without angina pectoris; M10.9 Gout, unspecified; I87.2 Venous insufficiency (chronic) (peripheral); E11.621 Type 2 diabetes mellitus with foot ulcer; L97.509 Non-pressure chronic ulcer of other part of unspecified foot with unspecified severity; D63.1 Anemia in chronic kidney disease; L89.151 Pressure ulcer of sacral region, stage 1; N40.0 Benign prostatic hyperplasia without lower urinary tract symptoms; Z96.653 Presence of artificial knee joint, bilateral; G30.9 Alzheimer's disease, unspecified; E66.01 Morbid (severe) obesity due to excess calories; R53.81 Other malaise; R62.7 Adult failure to thrive; G31.84 Mild cognitive impairment of uncertain or unknown etiology; F02.80 Dementia in other diseases classified elsewhere, unspecified severity, without behavioral disturbance, psychotic disturbance, mood disturbance, and anxiety; Z88.8 Allergy status to other drugs, medicaments and biological substances; Z79.899 Other long term (current) drug therapy; Z79.84 Long term (current) use of oral hypoglycemic drugs; Z90.49 Acquired absence of other specified parts of digestive tract; Z99.81 Dependence on supplemental oxygen; Z98.52 Vasectomy status; Z87.891 Personal history of nicotine dependence; Z80.1 Family history of malignant neoplasm of trachea, bronchus and lung; Z80.0 Family history of malignant neoplasm of digestive organs; Z79.01 Long term (current) use of anticoagulants
CPT/HCPCS: 36415; 36416; 36430; 36600; 70551; 71045; 76999; 80048; 80053; 81003; 81015; 82553; 82805; 83605; 83690; 83735; 83880; 84443; 84484; 84550; 85025; 85610; 85730; 86850; 86900; 86901; 87040; 87086; 87811; 93005; 93010; 94640; 94660; 94760; 96365; 96375; 97139; C9113; J0696; J1650; J1815; J1940; J2920; J3490; J7512; J7620; P9016; U0002

== ENCOUNTER 2022-02-27 10:19 | Emergency (ER) | payer MEDICARE, OTHER ==
[2022-02-27 11:11] LABS: #Monocytes 0.7 10x3/uL (0.0-1.1); #Neutrophils 5.4 10x3/uL (1.5-8.4); %Basophils 0.4 % (0.0-2.0); %Eosinophils 0.5 % (0.0-6.0); %Monocytes 8.9 % (0.0-10.0); Hemoglobin 8.5 g/dL (13.5-17.5); Mean Corpuscular HGB CONC 32.1 g/dL (32.0-36.0); Mean Corpuscular Volume 93.6 fl (81.2-95.1); Mean Platelet Volume 10.1 fl (7.4-10.4); Platelet Count 251 10x3/uL (150-450); Red Blood Cell (RBC) Count 2.83 10x6/uL (4.32-5.72)
[2022-02-27 11:36] LABS: ALT (SGPT) 7 U/L (8-55); AST (SGOT) 11 U/L (5-34); Albumin 3.8 g/dL (3.4-4.8); Alkaline Phosphatase 68 U/L (40-110); Anion Gap 14 mmol/L (10-20); BUN (Urea Nitrogen) 33 mg/dL (8.4-25.7); Bilirubin, Total 0.4 mg/dL (0.2-1.2); Calc. Creatinine Clearance 0 mL/min (70-130); Calcium 9.2 mg/dL (7.8-10.44); Carbon Dioxide 28 mmol/L (23-31); Chloride 101 mmol/L (98-107); Estimated GFR 28; Globulin 2.3 g/dL (2.4-3.5); Glucose 92 mg/dL (83-110); Potassium 4.8 mmol/L (3.5-5.1); Protein, Total 6.1 g/dL (5.8-8.1); Sodium 138 mmol/L (136-145)
[2022-02-27 13:08] LABS: Actual Bicarbonate (HCO3v) 27 mEq/L (22-28); Base Excess 2.8 mEq/L (-2.0 to +3.0); Calcium, Ionized (venous) 1.04 mmol/L (1.16-1.32); Chloride (VBG) 101 mmol/L (98-106); Hemoglobin (Hb) 9.9 g/dL (12.6-17.4); Potassium (VBG) 4.77 mmol/L (3.70-5.30); Puncture Site Other Site; RapidComm Collect By CBN; Sodium 133.4 mmol/L (133-146); pH (venous) 7.43 (7.32-7.43)
== END 2022-02-27 15:40 | disposition home or self-care (01) ==
LOC: CSHERS 10:19
DX: E11.22 Type 2 diabetes mellitus with diabetic chronic kidney disease (principal); I13.0 Hypertensive heart and chronic kidney disease with heart failure and stage 1 through stage 4 chronic kidney disease, or unspecified chronic kidney disease; N18.9 Chronic kidney disease, unspecified; E78.5 Hyperlipidemia, unspecified; J44.9 Chronic obstructive pulmonary disease, unspecified; M51.36 Other intervertebral disc degeneration, lumbar region
CPT/HCPCS: 36415; 71045; 72131; 80053; 82805; 83880; 84484; 85025; 93005; 94760

== ENCOUNTER 2022-09-29 08:59 | Inpatient (IN) | payer MEDICARE, OTHER ==
[2022-09-29 10:28] LABS: #Monocytes 0.8 10x3/uL (0.0-1.1); #Neutrophils 7.4 10x3/uL (1.5-8.4); %Basophils 0.2 % (0.0-2.0); %Eosinophils 0.1 % (0.0-6.0); %Lymphocytes 6.9 % (18.0-47.0); %Monocytes 8.5 % (0.0-10.0); %Neutrophils 83.8 % (40.0-75.0); Hematocrit 23.1 % (38.8-50.0); Hemoglobin 6.8 g/dL (13.5-17.5); Mean Corpuscular HGB CONC 29.4 g/dL (32.0-36.0); Mean Corpuscular Hemoglobin 29.6 pg (27.0-33.0); Mean Corpuscular Volume 100.4 fl (81.2-95.1); Mean Platelet Volume 10.3 fl (7.4-10.4); Platelet Count 250 10x3/uL (150-450); RBC Distribution Width 13.6 % (11.5-14.5); White Blood Cell (WBC) Count 8.8 10x3/uL (3.5-10.5)
[2022-09-29] MEDS ORDERED: Furosemide 40 MG/4 ML VIAL ONE (10:33)
[2022-09-29 10:38] LABS: ALT (SGPT) 36 U/L (8-55); AST (SGOT) 17 U/L (5-34); Albumin 3.4 g/dL (3.4-4.8); Alkaline Phosphatase 69 U/L (40-110); Anion Gap 15 mmol/L (10-20); BUN (Urea Nitrogen) 39 mg/dL (8.4-25.7); Bilirubin, Total 0.3 mg/dL (0.2-1.2); Calc. Creatinine Clearance 0 mL/min (70-130); Calcium 8.7 mg/dL (7.8-10.44); Carbon Dioxide 34 mmol/L (23-31); Chloride 100 mmol/L (98-107); Estimated GFR 29; Globulin 2.4 g/dL (2.4-3.5); Glucose 133 mg/dL (83-110); Potassium 4.3 mmol/L (3.5-5.1); Protein, Total 5.8 g/dL (5.8-8.1); Sodium 145 mmol/L (136-145)
[2022-09-29 11:27] LABS: Hypochromia SLIGHT = 6-15 cells (100X) (0-5/hpf); Macrocytosis SLIGHT = 6-15 cells (100X) (0-5/hpf)
[2022-09-29 11:28] LABS: Platelet Adequacy Comment Appears Adequate
[2022-09-29 12:12] LABS: Actual Bicarbonate (HCO3v) 39.6 mEq/L (22-28); Base Excess 10.9 mEq/L (-2 - +2); Calcium, Ionized (venous) 1.16 mmol/L (1.16-1.32); Chloride (VBG) 100 mmol/L (98-106); Hematocrit-VBG 23 % (42.0-52.0); Hemoglobin (Hb) 7.8 g/dL (12.6-17.4); Potassium (VBG) 4.12 mmol/L (3.70-5.30); Puncture Site Other Site; RapidComm Collect By CBN; Sodium 142.2 mmol/L (133-146); pH (venous) 7.266 (7.32-7.43)
[2022-09-29 14:44] LABS: ALV-art Gradient 68.325 mmHg (0-20); Actual Bicarbonate (HCO3a) 39.9 mEq/L (22-28); Base Excess (BEa) 12.3 mEq/L (-2.0 to +3.0); CO2 Tension 77.7 mmHg (35.0-45.0); Calcium, Ionized (arterial) 1.17 mmol/L (1.12-1.30); Hematocrit-ABG 22 % (42.0-52.0); Hemoglobin (Hb) 7.6 g/dL (14.0-18.0); O2 Tension (PaO2), arterial 84.1 mmHg (> 60.0); Puncture Site RRA; pH, Arterial 7.328 (7.35-7.45)
[2022-09-29] MEDS ORDERED: Senokot S 8.6-50 MG TAB PO PRN (14:46)
[2022-09-29] MEDS ORDERED: Bisacodyl 10 MG SUPP PR PRN (14:46)
[2022-09-29] MEDS ORDERED: Dextrose 5% in Water 1,000 ML IV PRN (14:46)
[2022-09-29] MEDS ORDERED: Bisacodyl 5 MG TAB PO PRN (14:46)
[2022-09-29] MEDS ORDERED: Glucagon 1 MG/ML KIT IM PRN (14:46)
[2022-09-29] MEDS ORDERED: Dextrose 50% Abboject 50 ML SYRINGE SLOW IVP PRN (14:46)
[2022-09-29] MEDS ORDERED: HumaLOG 300 UNITS/3 ML VIAL SC PRN (14:46)
[2022-09-29 15:31] LABS: Iron 24 ug/dL (65-175); Iron Binding Capacity, Total 246 mcg/dL (261-462)
[2022-09-29 16:04] LABS: Bilirubin Neg (Negative); Blood, Urine Negative (Negative); Glucose, Urine (Dipstick) Normal (Negative); Ketone, Urine Negative (Negative); Leukocyte 100 (Negative); Nitrite Negative (Negative); Protein, Urine (Dipstick) Negative (Neg-Trace); Specific Gravity, Urine 1.015 (1.005-1.030); Urobilinogen Normal mg/dL (Less than 2)
[2022-09-29 16:21] LABS: Clarity Clear (Clear)
[2022-09-29 16:22] LABS: Bacteria/HPF Rare-Few HPF (None Seen); CAUTI Indications for Culture Dysuria,urgency,freq; RBC/HPF 0-3 HPF (0-3); Squamous Epithelial 0-3 HPF (0-3); WBC/HPF 0-3 HPF (0-3)
[2022-09-29 16:23] LABS: Urine Culture Reflex No No
[2022-09-29] MEDS: Lactated Ringer's 1,000 ML IV SCH (18:08)
[2022-09-29] MEDS: Azithromycin 500 MG in Sodium Chloride 0.9% 250 ML 250 ML IVPB SCH (18:17)
[2022-09-29] MEDS: methylPREDNISolone Sod Succ 40 MG VIAL IVP SCH ×2 (18:19→23:13)
[2022-09-29] MEDS: Famotidine 20 MG TAB PO SCH (21:54)
[2022-09-29 22:46] LABS: Hematocrit 22.2 % (38.8-50.0); Hemoglobin 6.8 g/dL (13.5-17.5); Mean Corpuscular HGB CONC 30.6 g/dL (32.0-36.0); Mean Corpuscular Hemoglobin 29.4 pg (27.0-33.0); Mean Corpuscular Volume 96.1 fl (81.2-95.1); Mean Platelet Volume 10.6 fl (7.4-10.4); Platelet Count 230 10x3/uL (150-450); RBC Distribution Width 16.4 % (11.5-14.5); Red Blood Cell (RBC) Count 2.31 10x6/uL (4.32-5.72)
[2022-09-30 04:00] LABS: Anion Gap 21 mmol/L (10-20); BUN (Urea Nitrogen) 41 mg/dL (8.4-25.7); Calc. Creatinine Clearance 49 mL/min (70-130); Calcium 8.9 mg/dL (7.8-10.44); Carbon Dioxide 28 mmol/L (23-31); Chloride 97 mmol/L (98-107); Estimated GFR 32; Glucose 150 mg/dL (83-110); Potassium 4.3 mmol/L (3.5-5.1); Sodium 142 mmol/L (136-145)
[2022-09-30] MEDS: methylPREDNISolone Sod Succ 40 MG VIAL IVP SCH ×2 (05:12→17:13)
[2022-09-30] MEDS: Lactated Ringer's 1,000 ML IV SCH ×2 (05:12→17:13)
[2022-09-30 05:37] VITALS: BMI 43.7
[2022-09-30 08:11] LABS: #Monocytes 0.1 10x3/uL (0.0-1.1); #Neutrophils 6.7 10x3/uL (1.5-8.4); %Lymphocytes 6.1 % (18.0-47.0); %Monocytes 0.8 % (0.0-10.0); %Neutrophils 92.3 % (40.0-75.0); Hematocrit 25.6 % (38.8-50.0); Mean Corpuscular HGB CONC 31.3 g/dL (32.0-36.0); Mean Corpuscular Hemoglobin 29.2 pg (27.0-33.0); Mean Corpuscular Volume 93.4 fl (81.2-95.1); Mean Platelet Volume 10.6 fl (7.4-10.4); Platelet Count 258 10x3/uL (150-450); Red Blood Cell (RBC) Count 2.74 10x6/uL (4.32-5.72); White Blood Cell (WBC) Count 7.2 10x3/uL (3.5-10.5)
[2022-09-30] MEDS: cefTRIAXone\\ROCEPHIN 2 GM in Sodium Chloride 0.9% 100 ML IVPB SCH (08:40)
[2022-09-30] MEDS ORDERED: Furosemide 100 MG/10 ML VIAL SLOW IVP SCH ×2 (11:00→17:00)
[2022-09-30] MEDS: HumaLOG 300 UNITS/3 ML VIAL SC PRN ×2 (11:07→16:17)
[2022-09-30 15:42] LABS: Actual Bicarbonate (HCO3a) 33.7 mEq/L (22-28); Base Excess (BEa) 9.8 mEq/L (-2.0 to +3.0); CO2 Tension 43.3 mmHg (35.0-45.0); Calcium, Ionized (arterial) 1.12 mmol/L (1.12-1.30); Carboxyhemoglobin (COHb) 0.7 gm% (0.0-3.0); Hematocrit-ABG 23 % (42.0-52.0); Hemoglobin (Hb) 7.9 g/dL (14.0-18.0); O2 Tension (PaO2), arterial 77.4 mmHg (> 60.0); Potassium - ABG Lab 3.57 mmol/L (3.70-5.30); Puncture Site RRA; pH, Arterial 7.509 (7.35-7.45)
[2022-09-30 15:47] LABS: ALV-art Gradient 118.025 mmHg (0-20)
[2022-09-30] MEDS: Azithromycin 500 MG in Sodium Chloride 0.9% 250 ML 250 ML IVPB SCH (17:12)
[2022-09-30] MEDS: Mometasone/Formoterol 200/5 60 PUFF INH SCH (19:52)
[2022-09-30] MEDS: Famotidine 20 MG TAB PO SCH (20:19)
[2022-09-30] MEDS ORDERED: QUEtiapine 25 MG TAB PO SCH (23:59)
[2022-10-01] MEDS ORDERED: diphenhydrAMINE 50 MG/ML VIAL IVP SCH (00:45)
[2022-10-01] MEDS: Lactated Ringer's 1,000 ML IV SCH (01:17)
[2022-10-01 04:02] LABS: #Monocytes 0.6 10x3/uL (0.0-1.1); #Neutrophils 10.3 10x3/uL (1.5-8.4); %Basophils 0.1 % (0.0-2.0); %Lymphocytes 3.3 % (18.0-47.0); %Monocytes 5.6 % (0.0-10.0); %Neutrophils 90.3 % (40.0-75.0); Hematocrit 23.6 % (38.8-50.0); Hemoglobin 7.6 g/dL (13.5-17.5); Mean Corpuscular HGB CONC 32.2 g/dL (32.0-36.0); Mean Corpuscular Volume 90.1 fl (81.2-95.1); Mean Platelet Volume 10.6 fl (7.4-10.4); Platelet Count 282 10x3/uL (150-450); RBC Distribution Width 15.9 % (11.5-14.5); Red Blood Cell (RBC) Count 2.62 10x6/uL (4.32-5.72); White Blood Cell (WBC) Count 11.4 10x3/uL (3.5-10.5)
[2022-10-01 04:09] LABS: Anion Gap 15 mmol/L (10-20); BUN (Urea Nitrogen) 46 mg/dL (8.4-25.7); Calc. Creatinine Clearance 44 mL/min (70-130); Calcium 8.8 mg/dL (7.8-10.44); Carbon Dioxide 33 mmol/L (23-31); Chloride 96 mmol/L (98-107); Estimated GFR 27; Glucose 174 mg/dL (83-110); Potassium 3.6 mmol/L (3.5-5.1); Sodium 140 mmol/L (136-145)
[2022-10-01] MEDS: methylPREDNISolone Sod Succ 40 MG VIAL IVP SCH ×2 (05:25→17:12)
[2022-10-01] MEDS: Mometasone/Formoterol 200/5 60 PUFF INH SCH ×2 (07:15→19:10)
[2022-10-01] MEDS: Atenolol 25 MG TAB PO SCH (07:38)
[2022-10-01] MEDS: Spironolactone 25 MG TAB PO SCH (07:38)
[2022-10-01] MEDS: Calcitriol 0.25 MCG CAP PO SCH (07:40)
[2022-10-01] MEDS: Furosemide 40 MG TAB PO SCH (07:40)
[2022-10-01] MEDS: cefTRIAXone\\ROCEPHIN 2 GM in Sodium Chloride 0.9% 100 ML IVPB SCH (08:52)
[2022-10-01] MEDS ORDERED: Donepezil HCl 5 MG TAB PO SCH ×2 (09:00→11:00)
[2022-10-01] MEDS: Haloperidol 1 MG TAB PO SCH ×3 (10:59→23:53)
[2022-10-01] MEDS: HumaLOG 300 UNITS/3 ML VIAL SC PRN (11:17)
[2022-10-01] MEDS: Heparin 5,000 UNITS/ML VIAL SC SCH (20:09)
[2022-10-01] MEDS: Famotidine 20 MG TAB PO SCH (20:09)
[2022-10-01] MEDS: Doxycycline 100 MG in Sodium Chloride 0.9% 100 ML IVPB SCH (20:11)
[2022-10-02 02:39] LABS: #Monocytes 0.5 10x3/uL (0.0-1.1); #Neutrophils 10.9 10x3/uL (1.5-8.4); %Lymphocytes 4.3 % (18.0-47.0); %Monocytes 3.8 % (0.0-10.0); %Neutrophils 91.2 % (40.0-75.0); Hematocrit 27.9 % (38.8-50.0); Hemoglobin 8.6 g/dL (13.5-17.5); Mean Corpuscular HGB CONC 30.8 g/dL (32.0-36.0); Mean Corpuscular Hemoglobin 29.3 pg (27.0-33.0); Mean Corpuscular Volume 94.9 fl (81.2-95.1); Mean Platelet Volume 10.5 fl (7.4-10.4); Platelet Count 296 10x3/uL (150-450); Red Blood Cell (RBC) Count 2.94 10x6/uL (4.32-5.72); White Blood Cell (WBC) Count 11.9 10x3/uL (3.5-10.5)
[2022-10-02 02:47] LABS: Anion Gap 15 mmol/L (10-20); BUN (Urea Nitrogen) 55 mg/dL (8.4-25.7); Calc. Creatinine Clearance 38 mL/min (70-130); Calcium 8.8 mg/dL (7.8-10.44); Carbon Dioxide 33 mmol/L (23-31); Chloride 99 mmol/L (98-107); Estimated GFR 23; Glucose 181 mg/dL (83-110); Potassium 4.2 mmol/L (3.5-5.1); Sodium 143 mmol/L (136-145)
[2022-10-02] MEDS: methylPREDNISolone Sod Succ 40 MG VIAL IVP SCH (05:18)
[2022-10-02] MEDS: Haloperidol 1 MG TAB PO SCH ×4 (05:18→23:09)
[2022-10-02] MEDS: Mometasone/Formoterol 200/5 60 PUFF INH SCH ×2 (07:35→19:10)
[2022-10-02] MEDS: Furosemide 40 MG TAB PO SCH (08:00)
[2022-10-02] MEDS: Atenolol 25 MG TAB PO SCH (08:00)
[2022-10-02] MEDS: Spironolactone 25 MG TAB PO SCH (08:00)
[2022-10-02] MEDS: Calcitriol 0.25 MCG CAP PO SCH (08:04)
[2022-10-02] MEDS: cefTRIAXone\\ROCEPHIN 2 GM in Sodium Chloride 0.9% 100 ML IVPB SCH (09:01)
[2022-10-02] MEDS: Doxycycline 100 MG in Sodium Chloride 0.9% 100 ML IVPB SCH ×2 (09:11→20:20)
[2022-10-02] MEDS: HumaLOG 300 UNITS/3 ML VIAL SC PRN ×2 (09:11→12:15)
[2022-10-02] MEDS: Donepezil HCl 5 MG TAB PO SCH (09:21)
[2022-10-02] MEDS: Heparin 5,000 UNITS/ML VIAL SC SCH ×2 (09:32→20:20)
[2022-10-03 03:49] LABS: Anion Gap 16 mmol/L (10-20); BUN (Urea Nitrogen) 53 mg/dL (8.4-25.7); Calc. Creatinine Clearance 44 mL/min (70-130); Calcium 8.4 mg/dL (7.8-10.44); Carbon Dioxide 31 mmol/L (23-31); Chloride 97 mmol/L (98-107); Estimated GFR 29; Glucose 131 mg/dL (83-110); Potassium 3.6 mmol/L (3.5-5.1); Sodium 140 mmol/L (136-145)
[2022-10-03 03:59] LABS: #Monocytes 0.9 10x3/uL (0.0-1.1); #Neutrophils 7.6 10x3/uL (1.5-8.4); %Lymphocytes 11.3 % (18.0-47.0); %Monocytes 9.2 % (0.0-10.0); %Neutrophils 78.9 % (40.0-75.0); Hematocrit 26.6 % (38.8-50.0); Hemoglobin 8.4 g/dL (13.5-17.5); Mean Corpuscular HGB CONC 31.6 g/dL (32.0-36.0); Mean Corpuscular Hemoglobin 29.1 pg (27.0-33.0); Mean Platelet Volume 10.6 fl (7.4-10.4); Platelet Count 285 10x3/uL (150-450); RBC Distribution Width 15.4 % (11.5-14.5); Red Blood Cell (RBC) Count 2.89 10x6/uL (4.32-5.72); White Blood Cell (WBC) Count 9.6 10x3/uL (3.5-10.5)
[2022-10-03] MEDS: Acetaminophen 325 MG TAB PO PRN (04:28)
[2022-10-03] MEDS: Haloperidol 1 MG TAB PO SCH ×4 (06:07→23:33)
[2022-10-03] MEDS: Mometasone/Formoterol 200/5 60 PUFF INH SCH ×2 (07:40→19:58)
[2022-10-03] MEDS: Calcitriol 0.25 MCG CAP PO SCH (09:16)
[2022-10-03] MEDS: Atenolol 25 MG TAB PO SCH (09:16)
[2022-10-03] MEDS: Donepezil HCl 5 MG TAB PO SCH (09:17)
[2022-10-03] MEDS: Doxycycline 100 MG in Sodium Chloride 0.9% 100 ML IVPB SCH ×2 (09:17→20:10)
[2022-10-03] MEDS: Heparin 5,000 UNITS/ML VIAL SC SCH (09:20)
[2022-10-03] MEDS: Spironolactone 25 MG TAB PO SCH (09:20)
[2022-10-03] MEDS: cefTRIAXone\\ROCEPHIN 2 GM in Sodium Chloride 0.9% 100 ML IVPB SCH (09:55)
[2022-10-03] MEDS ORDERED: Calcium Carbonate 500 MG ChewTAB PO PRN (15:26)
[2022-10-04 04:19] LABS: Anion Gap 16 mmol/L (10-20); BUN (Urea Nitrogen) 47 mg/dL (8.4-25.7); Calc. Creatinine Clearance 47 mL/min (70-130); Calcium 8.5 mg/dL (7.8-10.44); Carbon Dioxide 28 mmol/L (23-31); Chloride 101 mmol/L (98-107); Estimated GFR 30; Glucose 121 mg/dL (83-110); Potassium 4.1 mmol/L (3.5-5.1); Sodium 141 mmol/L (136-145)
[2022-10-04 04:21] LABS: #Eosinphils 0.1 10x3/uL (0.0-0.5); #Monocytes 0.9 10x3/uL (0.0-1.1); #Neutrophils 7.7 10x3/uL (1.5-8.4); %Basophils 0.1 % (0.0-2.0); %Eosinophils 0.5 % (0.0-6.0); %Lymphocytes 11.1 % (18.0-47.0); %Monocytes 8.7 % (0.0-10.0); Hemoglobin 8.9 g/dL (13.5-17.5); Mean Corpuscular HGB CONC 30.7 g/dL (32.0-36.0); Mean Corpuscular Hemoglobin 29.4 pg (27.0-33.0); Mean Corpuscular Volume 95.7 fl (81.2-95.1); Mean Platelet Volume 10.9 fl (7.4-10.4); Platelet Count 271 10x3/uL (150-450); RBC Distribution Width 15.4 % (11.5-14.5); Red Blood Cell (RBC) Count 3.03 10x6/uL (4.32-5.72); White Blood Cell (WBC) Count 9.8 10x3/uL (3.5-10.5)
[2022-10-04] MEDS: Haloperidol 1 MG TAB PO SCH ×4 (05:01→23:22)
[2022-10-04] MEDS ORDERED: Ondansetron ODT 4 MG TAB PO PRN ×2 (06:09→06:15)
[2022-10-04] MEDS: Mometasone/Formoterol 200/5 60 PUFF INH SCH ×2 (07:25→19:15)
[2022-10-04] MEDS: Donepezil HCl 5 MG TAB PO SCH (09:50)
[2022-10-04] MEDS: Spironolactone 25 MG TAB PO SCH (09:51)
[2022-10-04] MEDS: Atenolol 25 MG TAB PO SCH (09:51)
[2022-10-04] MEDS: Calcitriol 0.25 MCG CAP PO SCH (09:51)
[2022-10-04] MEDS: cefTRIAXone\\ROCEPHIN 2 GM in Sodium Chloride 0.9% 100 ML IVPB SCH (09:59)
[2022-10-04] MEDS: Doxycycline 100 MG in Sodium Chloride 0.9% 100 ML IVPB SCH ×2 (10:40→23:44)
[2022-10-04] MEDS ORDERED: Doxycycline 100 MG in Sodium Chloride 0.9% 100 ML IVPB SCH (23:30)
[2022-10-05] MEDS: Haloperidol 1 MG TAB PO SCH ×3 (06:21→18:34)
[2022-10-05] MEDS: Mometasone/Formoterol 200/5 60 PUFF INH SCH ×2 (07:15→19:55)
[2022-10-05] MEDS: Donepezil HCl 5 MG TAB PO SCH (09:49)
[2022-10-05] MEDS: Atenolol 25 MG TAB PO SCH (09:49)
[2022-10-05] MEDS: Calcitriol 0.25 MCG CAP PO SCH (09:49)
[2022-10-05] MEDS: Spironolactone 25 MG TAB PO SCH (09:50)
[2022-10-05] MEDS: Acetaminophen 325 MG TAB PO PRN (12:43)
[2022-10-06] MEDS: Haloperidol 1 MG TAB PO SCH ×4 (01:08→20:28)
[2022-10-06 04:06] LABS: #Eosinphils 0.1 10x3/uL (0.0-0.5); #Monocytes 0.7 10x3/uL (0.0-1.1); #Neutrophils 7.5 10x3/uL (1.5-8.4); %Basophils 0.1 % (0.0-2.0); %Eosinophils 1.1 % (0.0-6.0); %Lymphocytes 10.3 % (18.0-47.0); %Monocytes 7.4 % (0.0-10.0); %Neutrophils 80.5 % (40.0-75.0); Hematocrit 26.5 % (38.8-50.0); Hemoglobin 7.9 g/dL (13.5-17.5); Mean Corpuscular HGB CONC 29.8 g/dL (32.0-36.0); Mean Corpuscular Volume 97.4 fl (81.2-95.1); Mean Platelet Volume 10.7 fl (7.4-10.4); Platelet Count 252 10x3/uL (150-450); RBC Distribution Width 15.5 % (11.5-14.5); Red Blood Cell (RBC) Count 2.72 10x6/uL (4.32-5.72); White Blood Cell (WBC) Count 9.4 10x3/uL (3.5-10.5)
[2022-10-06 04:16] LABS: Anion Gap 12 mmol/L (10-20); BUN (Urea Nitrogen) 38 mg/dL (8.4-25.7); Calc. Creatinine Clearance 48 mL/min (70-130); Calcium 8.6 mg/dL (7.8-10.44); Carbon Dioxide 31 mmol/L (23-31); Chloride 101 mmol/L (98-107); Estimated GFR 32; Glucose 131 mg/dL (83-110); Potassium 4.2 mmol/L (3.5-5.1); Sodium 140 mmol/L (136-145)
[2022-10-06] MEDS: Mometasone/Formoterol 200/5 60 PUFF INH SCH ×2 (07:18→19:07)
[2022-10-06] MEDS: Calcitriol 0.25 MCG CAP PO SCH (09:00)
[2022-10-06] MEDS: Atenolol 25 MG TAB PO SCH (09:02)
[2022-10-06] MEDS: Spironolactone 25 MG TAB PO SCH (09:02)
[2022-10-06] MEDS: Donepezil HCl 5 MG TAB PO SCH (09:02)
[2022-10-06] MEDS: Docusate 100 MG CAP PO SCH (20:28)
[2022-10-06] MEDS: guaiFENesin ER 600 MG TAB PO SCH (20:29)
[2022-10-06] MEDS ORDERED: Multivit, Therapeutic 1 TAB PO SCH (21:00)
[2022-10-06] MEDS ORDERED: Folic Acid 1 MG TAB PO SCH (21:00)
[2022-10-06] MEDS ORDERED: Cyanocobalamin (Vitamin B-12) 1,000 MCG TAB PO SCH (21:00)
[2022-10-06] MEDS ORDERED: Thiamine 100 MG TAB PO SCH (21:00)
[2022-10-07] MEDS: Haloperidol 1 MG TAB PO SCH ×3 (02:50→13:15)
[2022-10-07] MEDS: Mometasone/Formoterol 200/5 60 PUFF INH SCH (06:25)
[2022-10-07] MEDS: Atenolol 25 MG TAB PO SCH (08:58)
[2022-10-07] MEDS: Calcitriol 0.25 MCG CAP PO SCH (08:58)
[2022-10-07] MEDS: Acetaminophen 325 MG TAB PO PRN (08:58)
[2022-10-07] MEDS: Docusate 100 MG CAP PO SCH (09:00)
[2022-10-07] MEDS: guaiFENesin ER 600 MG TAB PO SCH (09:00)
[2022-10-07] MEDS: Spironolactone 25 MG TAB PO SCH (09:01)
[2022-10-07] MEDS: Donepezil HCl 5 MG TAB PO SCH (09:01)
[2022-10-07 09:23] VITALS: BP 171/78; TEMP 98
== END 2022-10-07 12:50 | DRG 813 ==
LOC: CSHERS 08:59 → CSHICU 14:46 → CSHTELE 10-04 08:23
PROVIDERS: ADMIT Hospitalist; ATTEND Internal Medicine
PROC: 0T9B70Z Drainage of Bladder with Drainage Device, Via Natural or Artificial Opening (ICD-10-PCS; principal; 2022-09-29)
PROC: 5A09457 Assistance with Respiratory Ventilation, 24-96 Consecutive Hours, Continuous Positive Airway Pressure (ICD-10-PCS; 2022-09-29)
PROC: 30233N1 Transfusion of Nonautologous Red Blood Cells into Peripheral Vein, Percutaneous Approach (ICD-10-PCS; 2022-09-29)
PROC: 4A033R1 Measurement of Arterial Saturation, Peripheral, Percutaneous Approach (ICD-10-PCS; 2022-09-29)
DX: D68.32 Hemorrhagic disorder due to extrinsic circulating anticoagulants (principal); G93.41 Metabolic encephalopathy; J96.21 Acute and chronic respiratory failure with hypoxia; J96.22 Acute and chronic respiratory failure with hypercapnia; I50.32 Chronic diastolic (congestive) heart failure; E66.2 Morbid (severe) obesity with alveolar hypoventilation; J44.1 Chronic obstructive pulmonary disease with (acute) exacerbation; F02.82 Dementia in other diseases classified elsewhere, unspecified severity, with psychotic disturbance; D62 Acute posthemorrhagic anemia; J90 Pleural effusion, not elsewhere classified; Z68.41 Body mass index [BMI] 40.0-44.9, adult; I13.0 Hypertensive heart and chronic kidney disease with heart failure and stage 1 through stage 4 chronic kidney disease, or unspecified chronic kidney disease; N39.0 Urinary tract infection, site not specified; N18.4 Chronic kidney disease, stage 4 (severe); T45.515A Adverse effect of anticoagulants, initial encounter; Y92.9 Unspecified place or not applicable; R31.0 Gross hematuria; G47.33 Obstructive sleep apnea (adult) (pediatric); G30.9 Alzheimer's disease, unspecified; I48.0 Paroxysmal atrial fibrillation; D63.1 Anemia in chronic kidney disease; E11.22 Type 2 diabetes mellitus with diabetic chronic kidney disease; K57.90 Diverticulosis of intestine, part unspecified, without perforation or abscess without bleeding; R33.9 Retention of urine, unspecified; M10.9 Gout, unspecified; Z88.8 Allergy status to other drugs, medicaments and biological substances; Z79.84 Long term (current) use of oral hypoglycemic drugs; Z79.01 Long term (current) use of anticoagulants; Z79.899 Other long term (current) drug therapy
CPT/HCPCS: 36415; 36416; 36430; 36600; 51702; 71045; 74176; 80048; 80053; 81001; 82140; 82805; 83540; 83550; 83880; 84484; 85025; 85046; 86850; 86900; 86901; 87086; 93005; 93306; 94640; 94660; 94664; 94760; 94762; 96374; J0456; J0696; J1200; J1644; J1815; J1940; J2920; J3490; J7050; J7120; J7611; P9016; Q0162